=== PATIENT | male | born 1940 | race Caucasian/White ===

== ENCOUNTER 2018-04-02 07:45 | Emergency (ER) | payer MEDICARE ==
[2018-04-02 07:45] VITALS: BMI 29.0
[2018-04-02] MEDS ORDERED: Albuterol-Ipratrop 3 mg / 0.5 (3 ml) UD IH STA (08:20)
--- NOTE | 2018-04-02 08:35 | ED PDOC ---
Arrival/HPI <Britt Bell - Last Filed: 04/02/18 09:28> - General Historian: Patient - History of Present Illness Time/Duration: > month Symptom Onset: Gradual Symptom Course: Unchanged <Ricki Pereyra - Last Filed: 04/02/18 09:49> - General Chief Complaint: Cough, Cold, Congestion Time Seen by Provider: 04/02/18 08:02 - History of Present Illness Narrative History of Present Illness (Text): 04/02/18 08:22 Patient is a 77 year old male with a past medical history of arthritis who presents to the ED complaining of cough. Patient says it started 1 month ago, is productive of clear sputum, and is starting to cause throat and chest pain from coughing so much. Patient went to see his PCP, Dr. Ga, who prescribed him singulair and proair, which have given him minimal relief. Patient says he has been taking tylenol PM at night to help him sleep because the cough wakes him up at night. Patient says he had this same cough last Aug/Sep that lasted a month. Patient admits to associated night sweats, tinnitus, and SOB. He denies any fever, chills, headache, nasal congestion, ear pain, palpitations, abdominal pain, nausea, vomiting, diarrhea, constipation, and lower extremity pain/swelling. PMH: arthritis (with chronic right knee pain) Meds: Proair, singulair Allergies: denies PSH: laminectomy, surgery for plantar fascitis FH: mother with breast cancer SH: denies tobacco, alcohol, and elicit drug use (Britt Bell) Past Medical History - Tetanus Immunization Tetanus Immunization: Unknown - Psychiatric Hx Depression: No Hx Emotional Abuse: No Hx Physical Abuse: No Hx Substance Use: No - Surgical History Hx Joint Replacement: Yes (Left knee) Other/Comment: Laminectomy - Suicidal Assessment Feels Threatened In Home Enviroment: No <Britt Bell - Last Filed: 04/02/18 09:28> - Provider Review Nursing Documentation Reviewed: Yes <Ricki Pereyra - Last Filed: 04/02/18 09:49> Family/Social History Family/Social History: Neoplasm/Cancer (mother with breast cancer) Smoking Status: Never Smoked Hx Alcohol Use: Yes Frequency of alcohol use: Socially Hx Substance Use: No Hx Substance Use Treatment: No <Britt Bell - Last Filed: 04/02/18 09:28> - Physician Review Nursing Documentation Reviewed: Yes Family/Social History: Unknown Family HX <RobertRicki garcia - Last Filed: 04/02/18 09:49> Allergies/Home Meds <Britt Bell - Last Filed: 04/02/18 09:28> <RobertradhaRicki - Last Filed: 04/02/18 09:49> Allergies/Adverse Reactions: Allergies No Known Allergies Allergy (Verified 04/02/18 07:58) Home Medications: Home Meds Medication Instructions Recorded Confirmed Albuterol Sulfate [Proair Hfa] 2 puff NEB Q4 PRN 04/02/18 04/02/18 Montelukast [Singulair] 10 mg PO DAILY 04/02/18 04/02/18 Review of Systems - Physician Review All systems were reviewed & negative as marked: Yes - Review of Systems Constitutional: Night Sweats. absent: Fevers Eyes: Normal ENT: Tinnitus, Sore Throat. absent: Hearing Changes, Rhinorrhea, Sinus Congestion Respiratory: SOB, Cough, Sputum (clear). absent: Wheezing Cardiovascular: Chest Pain (when coughing). absent: Palpitations, Edema, Calf Pain, Syncope Gastrointestinal: Normal. absent: Abdominal Pain, Constipation, Diarrhea, Nausea, Vomiting Genitourinary Male: Normal. absent: Dysuria, Frequency, Hematuria Musculoskeletal: Arthralgias (chronic right knee pain) Skin: Normal. absent: Rash Neurological: Normal. absent: Headache, Dizziness <Britt Bell - Last Filed: 04/02/18 09:28> Physical Exam - Systems Exam Head: Present: Atraumatic, Normocephalic Pupils: Present: PERRL Extroacular Muscles: Present: EOMI Conjunctiva: Present: Normal Mouth: Present: Moist Mucous Membranes Pharnyx: No: ERYTHEMA, EXUDATE, TONSILS ENLARGED Nose (External): Present: Atraumatic Nose (Internal): Present: Boggy. No: Rhinorrhea Neck: Present: Normal Range of Motion. No: Lymphadenopathy Respiratory/Chest: Present: Wheezes (end expiratory), Rales, Rhonchi Cardiovascular: Present: Regular Rate and Rhythm, Normal S1, S2. No: Murmurs Abdomen: Present: Normal Bowel Sounds. No: Tenderness, Distention, Peritoneal Signs Upper Extremity: Present: Normal Inspection. No: Cyanosis, Edema Lower Extremity: Present: Normal Inspection. No: Edema, CALF TENDERNESS Neurological: Present: GCS=15, Speech Normal Skin: Present: Warm, Dry, Normal Color. No: Rashes Lymphatic: No: Cervical Adenopathy Psychiatric: Present: Alert, Oriented x 3, Normal Insight, Normal Concentration <Britt Bell - Last Filed: 04/02/18 09:28> Vital Signs Reviewed: Yes Temperature: Afebrile Blood Pressure: Normal Pulse: Regular Respiratory Rate: Normal Appearance: Positive for: Well-Appearing, Non-Toxic, Comfortable Pain Distress: None Mental Status: Positive for: Alert and Oriented X 3 <Ricki Pereyra - Last Filed: 04/02/18 09:49> Vital Signs Temp Pulse Resp BP Pulse Ox 04/02/18 07:55 98.7 F 90 18 137/87 94 L Medical Decision Making <Britt Bell - Last Filed: 04/02/18 09:28> - Lab Interpretations I have reviewed the lab results: Yes - RAD Interpretation Residential Direct Support Professional: Radiologist <Ricki Pereyra - Last Filed: 04/02/18 09:49> ED Course and Treatment: Afebrile, no leukocytosis CXR shows no acute disease Will send patient home on a prednisone taper and have him continue proair and singulair with follow up with his PCP 04/02/18 09:28 (Britt Bell) 04/02/18 08:58 Seen and examined with the resident. Our history and physical exam reveals a gentleman complaining of a cough for approximately one month. He was seen by his PMD and is no better on Singulair and pro-air. He had a similar episode last fall. No chest pain. No fever. No URI symptoms. There is very mild wheezing. No respiratory distress. 04/02/18 In agreement with resident note, which includes further HPI details. Patient was seen and evaluated with resident, came up with plan and treatment together. 04/02/18 09:48 Chest X-ray: Creator : Patrick Simon MD COMPARISON:Made with chest radiograph 08/03/2014 FINDINGS: LUNGS:There appears to be some minor linear atelectasis and or scarring left lung base. In addition, the interstitial markings are slightly increased and coarsened with a few scattered peribronchial cuffing changes rule out sequela of reactive/inflammatory airway disease or viral illness. PLEURA: No significant pleural effusion identified. No pneumothorax apparent. CARDIOVASCULAR: Normal. OSSEOUS STRUCTURES: Minor multilevel degenerative spondylosis of the thoracic spine. VISUALIZED UPPER ABDOMEN: Normal. OTHER FINDINGS: None. IMPRESSION: There appears to be some minor linear atelectasis and or scarring left lung base. In addition, the interstitial markings are slightly increased and coarsened with a few scattered peribronchial cuffing changes. Rule out sequela of reactive/inflammatory airway disease or viral illness. (Ricki Pereyra) - Lab Interpretations Lab Results: 04/02/18 08:55 04/02/18 08:55 Lab Results 04/02/18 08:55: Sodium 145, Potassium 4.2, Chloride 109 H, Carbon Dioxide 26, Anion Gap 15, BUN 14, Creatinine 0.9, Est GFR ( Amer) > 60, Est GFR (Non- Af Amer) > 60, Random Glucose 93, Calcium 9.3, Total Bilirubin 1.0, AST 27, ALT 22, Alkaline Phosphatase 56, Total Protein 7.4, Albumin 4.1, Globulin 3.3, Albumin/Globulin Ratio 1.2 04/02/18 08:55: WBC 7.4 D, RBC 4.79, Hgb 14.3, Hct 41.7 L, MCV 87.1, MCH 29.9, MCHC 34.3, RDW 13.8, Plt Count 252, MPV 9.8, Gran % 43.7 L, Lymph % (Auto) 38.2 H, Dixie % (Auto) 9.0 H, Eos % (Auto) 8.6 H, Baso % (Auto) 0.5, Gran # 3.21, Lymph # (Auto) 2.8, Dixie # (Auto) 0.7 H, Eos # (Auto) 0.6, Baso # (Auto) 0.04 - RAD Interpretation Radiology Orders: 04/02/18 08:20 CHEST TWO VIEWS (PA/LAT) [RAD] Stat - Medication Orders Current Medication Orders: Discontinued Medications Albuterol/Ipratropium (Duoneb 3 Mg/0.5 Mg (3 Ml) Ud) 3 ml IH STAT STA Stop: 04/02/18 08:21 Last Admin: 04/02/18 08:47 Dose: 3 ml - PA / IMPROVEMENT MANAGER / Resident Statement MD/DO has reviewed & agrees with the documentation as recorded. MD/DO has examined the patient and agrees with the treatment plan. <Britt Bell - Last Filed: 04/02/18 09:28> - Scribe Statement The provider has reviewed the documentation as recorded by the Scribe <Ricki Pereyra - Last Filed: 04/02/18 09:49> - Scribe Statement Jenny Blount Provider Scribe Attestation: All medical record entries made by the Scribe were at my direction and personally dictated by me. I have reviewed the chart and agree that the record accurately reflects my personal performance of the history, physical exam, medical decision making, and the department course for this patient. I have also personally directed, reviewed, and agree with the discharge instructions and disposition. (Ricki Pereyra) Disposition/Present on Arrival - Present on Arrival Any Indicators Present on Arrival: No History of DVT/PE: No History of Uncontrolled Diabetes: No Urinary Catheter: No History of Decub. Ulcer: No History Surgical Site Infection Following: None - Disposition Have Diagnosis and Disposition been Completed?: Yes Disposition Time: 09:31 Patient Plan: Discharge <Britt Bell - Last Filed: 04/02/18 09:28> <Ricki Pereyra - Last Filed: 04/02/18 09:49> - Disposition Diagnosis: Seasonal allergies, Allergic cough Disposition: HOME/ ROUTINE Patient Problems: Current Active Problems Problem Status Onset Allergic cough Acute Seasonal allergies Acute Condition: STABLE Discharge Instructions (ExitCare): Cough in Adults Additional Instructions: Please follow up with you primary care provider and return to the ED if you experience new or worsening symptoms. Please take prednisone taper as directed and continue singulair and proair as prescribed by your PCP. Prescriptions: Prednisone [Deltasone] 40 mg PO DAILY 5 Days #10 tablet Forms: Scy[employer] (Lao)
[2018-04-02 09:05] LABS: BASO # 0.04 K/mm3 (0.0-2.0); BASO % 0.5 % (0.0-3.0); EOS # 0.6 (0.0-0.7); EOS % 8.6 % (1.5-5.0); GRAN # 3.21 (1.4-6.5); GRAN % 43.7 % (50.0-68.0); HEMOGLOBIN 14.3 g/dL (14.0-18.0); LYMPH # 2.8 (1.2-3.4); LYMPH % 38.2 % (22.0-35.0); MEAN CELL VOLUME 87.1 fl (80.0-105.0); MEAN CORPUSCULAR HEMOGLOBIN 29.9 pg (25.0-35.0); MEAN CORPUSCULAR HGB CONC 34.3 g/dl (31.0-37.0); MEAN PLATELET VOLUME 9.8 fl (7.0-11.0); MONO # 0.7 (0.1-0.6); RBC 4.79 10^6/uL (3.5-6.1); RED CELL DISTRIBUTION WIDTH 13.8 % (11.5-14.5); WHITE BLOOD COUNT 7.4 10^3/ul (4.5-11.0)
[2018-04-02 09:22] LABS: ALB/GLOB RATIO 1.2 (1.1-1.8); ALBUMIN 4.1 g/dL (3.0-4.8); ALT/SGPT 22 U/L (7-56); AST/SGOT 27 U/L (17-59); BLOOD UREA NITROGEN 14 mg/dL (7-21); CALCIUM 9.3 mg/dL (8.4-10.5); GFR AFRICAN-AMERICAN > 60; GFR NON-AFRICAN AMERICAN > 60
--- NOTE | 2018-04-02 09:39 | RAD ---
HISTORY: cough COMPARISON: Made with chest radiograph 08/03/2014 TECHNIQUE: Two-view chest. FINDINGS: LUNGS: There appears to be some minor linear atelectasis and or scarring left lung base. In addition, the interstitial markings are slightly increased and coarsened with a few scattered peribronchial cuffing changes rule out sequela of reactive/inflammatory airway disease or viral illness. PLEURA: No significant pleural effusion identified. No pneumothorax apparent. CARDIOVASCULAR: Normal. OSSEOUS STRUCTURES: Minor multilevel degenerative spondylosis of the thoracic spine. VISUALIZED UPPER ABDOMEN: Normal. OTHER FINDINGS: None. IMPRESSION: There appears to be some minor linear atelectasis and or scarring left lung base. In addition, the interstitial markings are slightly increased and coarsened with a few scattered peribronchial cuffing changes. Rule out sequela of reactive/inflammatory airway disease or viral illness.
[2018-04-02 10:12] VITALS: BP 129/72; PULSE 72; RESP 20; TEMP 98; O2SAT 97
== END 2018-04-02 10:12 | disposition home or self-care (01) ==
LOC: ED 07:45
DX: J30.2 Other seasonal allergic rhinitis (principal); R05 Cough; Z80.3 Family history of malignant neoplasm of breast